=== PATIENT | female | born 1980 | race Caucasian/White ===

== ENCOUNTER 2022-12-25 04:06 | Day surgery (SDC) | payer OTHER ==
[2022-12-19 14:47] VITALS: BMI 46.0
[~2022-12-25 04:06] MED LIST: MICROFIBRILLAR COLLAGEN 1 GM EACH NR ONE
[2022-12-25] MEDS ORDERED: MIDAZOLAM HCL 2 MG/2 ML SINGLE DOSE VIAL ONE (12:10)
[2022-12-25] MEDS ORDERED: HYDROmorphone HCl 2 MG/ML VIAL ONE (12:13)
[2022-12-25] MEDS ORDERED: SUCCINYLCHOLINE CHLORIDE 200 MG/10 ML SYRINGE ONE (12:14)
[2022-12-25] MEDS ORDERED: PROPOFOL 40 ML ONE (12:24)
[2022-12-25] MEDS ORDERED: ceFAZolin SODIUM 1 GM VIAL IVPB ONE (12:30)
[2022-12-25] MEDS ORDERED: LIDOCAINE HCL 1%, 10 MG/ML (20ML VIAL) INF ONE (13:00)
[2022-12-25] MEDS ORDERED: BUPIVACAINE HCL/PF 0.5% (5 MG/ML) 30 ML VIAL IJ ONE (13:00)
[2022-12-25] MEDS ORDERED: PROPOFOL 20 ML ONE ×3 (13:05→14:14)
[2022-12-25] MEDS ORDERED: MICROFIBRILLAR COLLAGEN 1 GM EACH NR ONE (14:37)
[2022-12-25] MEDS ORDERED: ePHEDrine SULFATE 50 MG/1 ML AMPULE ONE (14:59)
[2022-12-25] MEDS ORDERED: ONDANSETRON 4 MG/2 ML VIAL IVPUSH PRN (15:14)
[2022-12-25] MEDS ORDERED: oxyCODONE HCL 5 MG TABLET PO PRN (15:14)
[2022-12-25] MEDS ORDERED: LACTATED RINGERS SOLUTION 1,000 ML IV SCH (15:30)
[2022-12-25 17:24] VITALS: RESP 18
[2022-12-25 18:26] VITALS: BP 129/76; PULSE 104; TEMP 97.2
== END 2022-12-25 19:05 | disposition home or self-care (01) ==
LOC: JASU-SURG 04:06
PROVIDERS: ATTEND Surgery
PROC: 0GTH0ZZ Resection of Right Thyroid Gland Lobe, Open Approach (ICD-10-PCS; 2022-12-25)
PROC: 0GTJ0ZZ Resection of Thyroid Gland Isthmus, Open Approach (ICD-10-PCS; principal; 2022-12-25 10:00)
DX: C73 Malignant neoplasm of thyroid gland (principal)
CPT/HCPCS: 81025; 82962; 88307-TC; 94760